=== PATIENT | female | born 1950 | race Caucasian/White ===

== ENCOUNTER 2018-03-21 15:08 | Emergency (ER) | payer OTHER, BC ==
[2018-03-21 15:15] VITALS: BP 129/86
--- NOTE | 2018-03-21 15:32 | EDM.PDOC ---
ED HPI GENERAL MEDICAL PROBLEM - General Chief Complaint: Laceration Stated Complaint: W/COMP - CUT FINGER Time Seen by Provider: 03/21/18 15:26 Source of Information: Reports: Patient, RN, RN Notes Reviewed History Limitations: Reports: No Limitations - History of Present Illness INITIAL COMMENTS - FREE TEXT/NARRATIVE: Cut left 4th finger on a razor at work just prior to arrival. Denies any other injury. Last tetanus vaccine >10yrs ago. Onset: Today Duration: Constant Location: Reports: Upper Extremity, Left Quality: Reports: Ache Severity: Mild Improves with: Reports: None Worsens with: Reports: None Associated Symptoms: Reports: No Other Symptoms Left Hand Pain Score (Numeric/FACES): 4 - Related Data Allergies Allergy/AdvReac Type Severity Reaction Status Date / Time amoxicillin [Amoxicillin] Allergy Diarrhea Verified 03/21/18 15:12 regadenoson [From Lexiscan] Allergy Seizure Verified 03/21/18 15:14 shellfish derived Allergy Stomach Verified 03/21/18 15:12 Ache Home Meds: Home Meds levETIRAcetam [Keppra] 1,500 mg PO DAILY 10/03/13 [History] Ascorbic Acid [Vitamin C] 1,500 mg PO DAILY 06/04/16 [History] Aspirin 81 mg PO DAILY 06/04/16 [History] Calcium Citrate/Vitamin D3 [Calcium Citrate + D] 1 tab PO DAILY 06/04/16 [ History] Clopidogrel [Plavix] 75 mg PO DAILY 06/04/16 [History] Lisinopril 5 mg PO DAILY 06/04/16 [History] Nitroglycerin [IJP: Nitroglycerin] 1 tab SL ASDIRECTED 06/04/16 [History] PARoxetine HCl [Paxil] 30 mg PO DAILY 06/04/16 [History] Tiotropium [Spiriva HandiHaler] 2 puff INH ASDIRECTED 06/04/16 [History] atorvaSTATin Calcium [Atorvastatin Calcium] 40 mg PO DAILY 06/04/16 [History] Past Medical History HEENT History: Reports: Impaired Vision Cardiovascular History: Reports: High Cholesterol, Hypertension, SOB on Exertion , Stents Respiratory History: Reports: Asthma Musculoskeletal History: Reports: Arthritis Other Musculoskeletal History: cortisone shots to knuckle of left hand. Neurological History: Reports: Seizure Psychiatric History: Reports: Anxiety, Depression Hematologic History: Reports: Anticoagulation Therapy - Infectious Disease History Infectious Disease History: Reports: Chicken Pox, Measles - Past Surgical History Cardiovascular Surgical History: Reports: Coronary Artery Stent GI Surgical History: Reports: Appendectomy Musculoskeletal Surgical History: Reports: Other (See Below) Other Musculoskeletal Surgeries/Procedures:: pins in toes & surgery to elbow Social & Family History - Family History Family Medical History: Noncontributory Cardiac: Reports: CAD Neurological: Reports: CVA - Tobacco Use Smoking Status *Q: Former Smoker Used Tobacco, but Quit: Yes Month/Year Tobacco Last Used: 30 years ago - Caffeine Use Caffeine Use: Reports: Coffee Other Caffeine Use: 1 cup /day - Recreational Drug Use Recreational Drug Use: No - Living Situation & Occupation Occupation: Employed ED ROS GENERAL - Review of Systems Review Of Systems: ROS reveals no pertinent complaints other than HPI. ED EXAM, SKIN/RASH Exam: See Below Exam Limited By: No Limitations General Appearance: Alert, WD/WN, No Apparent Distress Head: Atraumatic, Normocephalic Respiratory/Chest: No Respiratory Distress Extremities: Normal Range of Motion, Normal Capillary Refill, Other (distal left 4th finger with a 5mm superficial flap laceration, no active bleeding, no FB) Neurological: Alert, Oriented, No Motor/Sensory Deficits Psychiatric: Normal Mood Course - Vital Signs Last Recorded V/S: Last Vital Signs Temp 36.8 C 03/21/18 15:14 Pulse 77 03/21/18 15:14 Resp 18 03/21/18 15:14 BP 129/86 03/21/18 15:14 Pulse Ox 98 03/21/18 15:14 - Re-Assessments/Exams Free Text/Narrative Re-Assessment/Exam: 03/21/18 15:30 No procedural wound card by provider. Departure - Departure Time of Disposition: 15:30 Disposition: Home, Self-Care 01 Condition: Good Clinical Impression: Work place accident Laceration of left ring finger Qualifiers: Encounter type: initial encounter Damage to nail status: without damage Foreign body presence: without foreign body Qualified Code(s): S61.215A - Laceration without foreign body of left ring finger without damage to nail, initial encounter - Discharge Information Instructions: Stitches, Dalia, or Adhesive Wound Closure, [id number] Additional Instructions: May return to work without restrictions. Follow up in clinic if any further problems.
[2018-03-21] MEDS ORDERED: Diphtheria,Pertussis(Acell),Tetanus Vaccine 0.5 ML SDV IM ONE (15:36)
== END 2018-03-21 15:49 | disposition home or self-care (01) ==
LOC: DL.ED 15:08
DX: S61.215A Laceration without foreign body of left ring finger without damage to nail, initial encounter (principal); I10 Essential (primary) hypertension; E78.00 Pure hypercholesterolemia, unspecified; F41.9 Anxiety disorder, unspecified; F32.9 Major depressive disorder, single episode, unspecified; Z79.01 Long term (current) use of anticoagulants; Z88.1 Allergy status to other antibiotic agents; Z91.013 Allergy to seafood; Z88.8 Allergy status to other drugs, medicaments and biological substances; W26.8XXA Contact with other sharp object(s), not elsewhere classified, initial encounter; Y99.0 Civilian activity done for income or pay; Z23 Encounter for immunization
CPT/HCPCS: 90471; 90715; 96372; 99282

== ENCOUNTER 2025-07-23 06:20 | Day surgery (SDC) | payer MEDICARE, OTHER ==
[2025-07-23] MEDS ORDERED: Lactated Ringers 1,000 ML IV ONE (06:21)
[2025-07-23] MEDS ORDERED: Propofol 200 MG/20 ML SDV IV ONE (06:21)
[2025-07-23] MEDS: Lactated Ringers 1,000 ML IV SCH (06:54)
[2025-07-23 09:14] VITALS: BP 145/87; PULSE 52
[2025-07-23] MEDS ORDERED: Propofol 200 MG/20 ML SDV ONE (09:25)
== END 2025-07-23 09:15 | disposition home or self-care (01) ==
LOC: DL.ENDO 06:20
PROVIDERS: ATTEND Internal Medicine Gastroenterology
DX: K57.30 Diverticulosis of large intestine without perforation or abscess without bleeding (principal); F41.9 Anxiety disorder, unspecified; F32.A Depression, unspecified; I10 Essential (primary) hypertension; E78.00 Pure hypercholesterolemia, unspecified; Z88.8 Allergy status to other drugs, medicaments and biological substances; Z88.1 Allergy status to other antibiotic agents; Z79.899 Other long term (current) drug therapy
CPT/HCPCS: 45380; J2704; J7120; S5010; 88305